=== PATIENT | female | born 1955 | race Caucasian/White ===

== ENCOUNTER → 2017-05-14 | Outpatient (CLI) | payer BC ==
--- NOTE | 2017-05-15 13:44 | MM ---
Reason for exam: screening (asymptomatic). Last mammogram was performed 1 year and 9 months ago. History: Patient is postmenopausal. Family history of breast cancer in cousin and breast cancer in grandmother. Took hormonal contraceptives for 5 years. Physical Findings: A clinical breast exam by your physician is recommended on an annual basis and results should be correlated with mammographic findings. MG Screening Mammo w CAD Bilateral CC and MLO view(s) were taken. Prior study comparison: August 16, 2015, bilateral MG screening mammo w CAD. April 19, 2013, bilateral digital screening mammo w/CAD. There are scattered fibroglandular densities. No suspicious abnormality. No significant changes when compared with prior studies. ASSESSMENT: Negative, BI-RAD 1 RECOMMENDATION: Routine screening mammogram of both breasts in 1 year.
== END | disposition home or self-care (01) ==
LOC: RADMAMWWP 14:31
PROVIDERS: ATTEND Family Medicine
DX: Z12.31 Encounter for screening mammogram for malignant neoplasm of breast (principal)

== ENCOUNTER → 2018-05-07 | Outpatient (CLI) | payer BC ==
--- NOTE | 2018-05-13 09:40 | MM ---
Reason for exam: screening (asymptomatic). Last mammogram was performed 1 year ago. History: Patient is postmenopausal. Family history of breast cancer in cousin and breast cancer in grandmother. Took hormonal contraceptives for 5 years. Physical Findings: A clinical breast exam by your physician is recommended on an annual basis and results should be correlated with mammographic findings. MG Screening Mammo w CAD Bilateral CC and MLO view(s) were taken. Prior study comparison: May 14, 2017, bilateral MG screening mammo w CAD. August 16, 2015, bilateral MG screening mammo w CAD. There are scattered fibroglandular densities. Benign appearing scattered bilateral calcifications. No suspicious abnormality. No significant changes when compared with prior studies. ASSESSMENT: Benign, BI-RAD 2 RECOMMENDATION: Routine screening mammogram of both breasts in 1 year.
== END ==
LOC: RADMAMWWP 07:12
PROVIDERS: ATTEND Family Medicine
DX: Z12.31 Encounter for screening mammogram for malignant neoplasm of breast (principal)
CPT/HCPCS: 77067

== ENCOUNTER → 2019-07-12 | Outpatient (CLI) | payer BC ==
--- NOTE | 2019-07-12 15:46 | US ---
EXAMINATION TYPE: US pelvis complete transvag DATE OF EXAM: 07/12/2019 COMPARISON: NONE CLINICAL HISTORY: N81.10 Cystocele,Z80.41 Family history of malignant neoplasm. Mother had ovarian ca ncer TECHNIQUE: . Transabdominal sonographic images of the pelvis were acquired. Transvaginal sonographi c images were medically necessary to better assess the following anatomy: Uterus and ovaries Date of LMP: 3 years ago EXAM MEASUREMENTS: Uterus: 5.9 x 4.3 x 4.7 cm Endometrial Stripe: 0.2 cm Right Ovary: 2.0 x 1.4 x 1.3 cm Left Ovary: 0.9 x 0.7 x 1.3 cm 1. Uterus: Anteverted Echogenic area measuring 1.5 x 1.5 x 1.9 cm 2. Endometrium: wnl 3. Right Ovary: wnl 4. Left Ovary: Adjacent to the left ovary, there is a cystic area visualized measuring 3.5 x 1.7 x 2 .1 cm, probable paraovarian cyst 5. Bilateral Adnexa: See above 6. Posterior cul-de-sac: wnl IMPRESSION: 1. Intramural echogenic lesion measuring 1.9 cm could represent a lipoleiomyoma or much less likely a lipoleiomyosarcoma. Pelvic MRI or short-term follow-up ultrasound could be considered. 2. Probable 3.5 cm paraovarian cyst on the left. Consensus criteria recommends annual follow-up ultra sound for surveillance in cysts of this size.
--- NOTE | 2019-07-14 14:57 | MM ---
Reason for exam: screening (asymptomatic). Last mammogram was performed 1 year and 2 months ago. History: Patient is postmenopausal. Family history of breast cancer in cousin and breast cancer in grandmother. Took hormonal contraceptives for 5 years. Physical Findings: A clinical breast exam by your physician is recommended on an annual basis and results should be correlated with mammographic findings. MG Screening Mammo w CAD Bilateral CC and MLO view(s) were taken. Prior study comparison: May 07, 2018, bilateral MG screening mammo w CAD. May 14, 2017, bilateral MG screening mammo w CAD. There are scattered fibroglandular densities. No significant changes when compared with prior studies. ASSESSMENT: Benign, BI-RAD 2 RECOMMENDATION: Routine screening mammogram of both breasts in 1 year.
== END | disposition home or self-care (01) ==
LOC: RADUSWWP 12:41
PROVIDERS: ATTEND Family Medicine
DX: Z12.31 Encounter for screening mammogram for malignant neoplasm of breast (principal); N81.10 Cystocele, unspecified; R87.820 Cervical low risk human papillomavirus (HPV) DNA test positive; Z80.41 Family history of malignant neoplasm of ovary
CPT/HCPCS: 76830; 76856; 77067

== ENCOUNTER → 2019-10-05 | Outpatient (CLI) | payer BC ==
--- NOTE | 2019-10-05 12:44 | US ---
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 follow up from prior ultras ound. family history of ovarian cancer TECHNIQUE: Transvaginal (TV) and Transabdominal (TA) . Transabdominal sonographic images of the pel vis were acquired. Transvaginal sonographic images were medically necessary to better assess the fol lowing anatomy: ovaries Date of LMP: unknown EXAM MEASUREMENTS: Uterus: 6.7 x 3.9 x 5.3 cm Endometrial Stripe: 0.4 cm Right Ovary: unable to visualize Left Ovary: 2.1 x 1.4 x 1.5 cm 1. Uterus: Anteverted hyperechoic area = 1.9 x 2.0 x 2.1cm, this previously measured 1.5 x 1.5 x 1.9 cm and hypoechoic area = 0.8 x 0.6 x 0.9cm, possible small leiomyoma. 2. Endometrium: appears wnl 3. Right Ovary: Obscured by overlying bowel gas 4. Left Ovary: cystic area adjacent to left ovary = 3.1 x 1.3 x 3.5cm. This previously measured 3.5 x 1.7 x 2.1 cm on the prior. 5. Right Adnexa: appears wnl 6. Posterior cul-de-sac: appears wnl IMPRESSION: 1. Interval growth of the hyperechoic uterine lesion in comparison to 07/12/2019. Most commonly this r elates to a hemorrhagic leiomyoma, lipoleiomyoma or much less likely a lipoleiomyosarcoma. Pelvic MRI with contrast or surgical consultation are recommended given the interval growth. Interval growth of the left paraovarian lesion is also seen and pelvic MRI or surgical consultation also recommended fo r this lesion. 2. Obscuration of the right ovary.
== END | disposition home or self-care (01) ==
LOC: RADUSWWP 10:36
PROVIDERS: ATTEND Family Medicine
DX: N85.9 Noninflammatory disorder of uterus, unspecified (principal); N83.8 Other noninflammatory disorders of ovary, fallopian tube and broad ligament; D39.0 Neoplasm of uncertain behavior of uterus; Z80.41 Family history of malignant neoplasm of ovary
CPT/HCPCS: 76830; 76856

== ENCOUNTER → 2020-09-19 | Outpatient (CLI) | payer BC ==
--- NOTE | 2020-09-20 13:07 | MM ---
Reason for exam: screening (asymptomatic). Last mammogram was performed 1 year and 2 months ago. History: Patient is postmenopausal. Family history of breast cancer in cousin and breast cancer in grandmother. Took hormonal contraceptives for 5 years. Physical Findings: A clinical breast exam by your physician is recommended on an annual basis and results should be correlated with mammographic findings. MG Screening Mammo w CAD Bilateral CC, MLO, and XCCL view(s) were taken. Prior study comparison: July 12, 2019, bilateral MG screening mammo w CAD. May 07, 2018, bilateral MG screening mammo w CAD. There are scattered fibroglandular densities. There are benign appearing round calcifications in the right breast. There is no discrete abnormality. ASSESSMENT: Benign, BI-RAD 2 RECOMMENDATION: Routine screening mammogram of both breasts in 1 year.
== END | disposition home or self-care (01) ==
LOC: RADMAMWWP 16:19
PROVIDERS: ATTEND Obstetrics & Gynecology Gynecology
DX: Z12.31 Encounter for screening mammogram for malignant neoplasm of breast (principal); Z78.0 Asymptomatic menopausal state; Z80.3 Family history of malignant neoplasm of breast
CPT/HCPCS: 77067

== ENCOUNTER 2021-06-10 10:41 | Observation (INO) | payer BC, MEDICARE ==
[2021-06-05 15:05] VITALS: BMI 29.5
[~2021-06-10 10:41] MED LIST: ACETAMINOPHEN TAB 500 MG TAB PO PRN; HEPARIN SODIUM,PORCINE/PF 5,000 UNIT/0.5 ML SYRINGE SQ PRN; LIDOCAINE 1% (10MG/ML) FOR IV START INTRADERMA PRN
[2021-06-10 11:24] LABS: Glucose,Whole Blood 81 mg/dL (75-99)
[2021-06-10] MEDS: LACTATED RINGERS 1,000 ML IV SCH (11:27)
[2021-06-10] MEDS: DEXAMETHASONE SOD PHOSPHATE 4 MG/ML 1 ML VIAL IV ONE ×2 (11:27→17:26)
[2021-06-10] MEDS: ONDANSETRON 4 MG/2 ML VIAL IVP ONE ×2 (11:27→17:26)
--- NOTE | 2021-06-10 11:34 | P.GSHP ---
History of Present Illness H&P Date: 06/10/21 Chief Complaint: Incisional hernia 66-year-old female here for elective repair incisional hernia. Patient had a hysterectomy performed December 2019 through a low midline incision. Patient found to have significant abdominal adhesions. Following the surgery she has noticed a gradual increasing bulge there. Reducible hernia identified on recent exam. Mild pain at times. Hernia is increasing in size. Patient had previous open repair of a periumbilical hernia with ventral X ST mesh. Recent colonoscopy showed diverticulosis only. Past Medical History Past Medical History: Osteoarthritis (OA) Additional Past Medical History / Comment(s): 05/31/14 Pt admitted to floor s/p incarcerated hernia repair with mesh. Pt had hx of anterior avdominal wall hernia containing small bowel loops. History of Any Multi-Drug Resistant Organisms: None Reported Past Surgical History: Cholecystectomy, Hernia Repair, Hysterectomy, Tonsillectomy Additional Past Surgical History / Comment(s): 2 separate hernia repairs without mesh. HERNIA WITH MESH, BILATERAL OOPHERECTOMY AND TUBES REMOVED Past Anesthesia/Blood Transfusion Reactions: No Reported Reaction Smoking Status: Never smoker - Past Family History Mother Family Medical History: Cancer Additional Family Medical History / Comment(s): OVARIAN CANCER Father Family Medical History: Coronary Artery Disease (CAD) Medications and Allergies Home Medications Medication Instructions Recorded Confirmed Type Acetaminophen [Tylenol Arthritis] 1,300 mg PO Q8H PRN 06/05/21 06/10/21 History Ibuprofen [Motrin] 800 mg PO Q12H PRN 06/05/21 06/10/21 History Zinc 50 mg PO DAILY 06/05/21 06/10/21 History Allergies Allergy/AdvReac Type Severity Reaction Status Date / Time nickel Allergy RED AND Verified 06/10/21 11:08 BURNING SKIN Surgical - Exam Vital Signs Temp Pulse Resp BP Pulse Ox 97.5 F L 91 18 150/72 97 06/10/21 11:16 06/10/21 11:16 06/10/21 11:16 06/10/21 11:16 06/10/21 11:16 Physical exam: General: Well-developed, well-nourished HEENT: Normocephalic, sclerae nonicteric Abdomen: Nontender, nondistended, moderate size reducible incisional hernia low midline, fascial defect proximally 4 cm Extremities: No edema Neuro: Alert and oriented Assessment and Plan (1) Incisional hernia Narrative/Plan: 66-year-old female with symptomatic reducible lower midline incisional hernia. Options discussed with the patient in the office in detail. We'll proceed with open repair incisional hernia with mesh. Risks of bleeding, infection, recurrence, bladder and bowel injury, numbness, nerve injury, cardiac complications were discussed with the patient. The patient understands and wishes to proceed. Current Visit: No Status: Acute Code(s): K43.2 - INCISIONAL HERNIA WITHOUT OBSTRUCTION OR GANGRENE SNOMED Code(s): 305947268
[2021-06-10] MEDS ORDERED: fentaNYL (PF) 50 MCG/ML 2 ML AMP IVP ONE ×2 (11:55→16:52)
[2021-06-10] MEDS ORDERED: MIDAZOLAM 2 MG/2 ML VIAL IVP ONE (11:55)
[2021-06-10] MEDS ORDERED: MIDAZOLAM 2 MG/2 ML VIAL ONE (13:10)
[2021-06-10] MEDS ORDERED: ROPIVACAINE 5 MG/ML 30 ML VIAL ONE (13:10)
[2021-06-10] MEDS ORDERED: GLYCOPYRROLATE 0.2 MG/ML 2 ML VIAL ONE (13:10)
[2021-06-10] MEDS ORDERED: SUCCINYLCHOLINE CHLORIDE 100 MG/5 ML SYR IV ONE (13:10)
[2021-06-10] MEDS ORDERED: fentaNYL (PF) 50 MCG/ML 2 ML AMP ONE (13:10)
[2021-06-10] MEDS ORDERED: NEOSTIGMINE 1 MG/ML 10 ML VIAL ONE (13:10)
[2021-06-10] MEDS ORDERED: PHENYLEPHRINE-0.9% NACL SYG 1,000 MCG/10 ML SYRINGE ONE (13:10)
[2021-06-10] MEDS ORDERED: SODIUM CHLORIDE 0.9% (PF) 10 ML VIAL ONE (13:10)
[2021-06-10] MEDS ORDERED: LIDOCAINE 1% INJ 10MG/ML (20 ML MDV) ONE (13:10)
[2021-06-10] MEDS ORDERED: ROCURONIUM 10 MG/ML (5 ML VIAL) IV ONE (13:10)
[2021-06-10] MEDS ORDERED: PROPOFOL 10 MG/ML 20 ML VIAL IV ONE (13:10)
--- NOTE | 2021-06-10 13:12 | P.ANPRN ---
Procedure Note - Anesthesia - Nerve Block Performed Bilateral Erector Spinae Single Time Out Performed: Yes ([id number]) Date of Procedure: 06/10/21 Procedure Start Time: 12:55 Procedure Stop Time: 12:31 Location of Patient: PreOp Indication: Acute Post-Operative Pain, Requested by Surgeon Specifically requested for management of pain by DrAni: John Drummond Sedation Type: Sedate with meaningful contact maintained Preparation: Sterile Prep Position: Prone Catheter: None Needle Types: Pajunk Needle Gauge: 21 Ultrasound used to visualize needle placement: Yes Ultrasound used to observe medication spread: Yes Injectate: 0.5% Ropivacaine (see comment for volume) (15cc + 15cc nacl pf) Blood Aspirated: No Pain Paresthesia on Injection Noted: No Resistance on Injection: Normal Image Stored and Saved: Yes Events: Uneventful and Well Tolerated
[2021-06-10] MEDS ORDERED: LACTATED RINGERS 1,000 ML IV ONE ×2 (14:57→15:30)
[2021-06-10] MEDS ORDERED: NALOXONE 0.4 MG/ML 1 ML VIAL IV PRN (15:30)
[2021-06-10] MEDS ORDERED: ONDANSETRON 4 MG/2 ML VIAL IVP PRN (15:32)
[2021-06-10] MEDS ORDERED: ACETAMINOPHEN IV (For NPO) 1,000 MG in EMPTY BAG 1 BAG IVPB PRN (15:32)
[2021-06-10] MEDS ORDERED: HYDROmorphone 0.5 MG/0.5 ML SYRINGE IVP PRN (15:32)
[2021-06-10] MEDS: HYDROmorphone 0.5 MG/0.5 ML SYRINGE IVP PRN ×4 (15:36→16:26)
--- NOTE | 2021-06-10 15:41 | P.OP ---
Date of Procedure: 06/10/21 Procedure(s) Performed: PREOPERATIVE DIAGNOSIS: Incisional hernia POSTOPERATIVE DIAGNOSIS: Same PROCEDURE: Open repair large incisional hernia with 2 defects with mesh SURGEON: Dr. Drummond ANESTHESIA: General OPERATIVE PROCEDURE DETAILS: Patient placed on the operating table in the supine position. Abdomen was prepped and draped in usual sterile fashion. The previous lower midline incision was re-incised. Dissection through the subcutaneous tissues took place using electrocautery. A moderate to large hernia was identified. The hernia sac was carefully dissected down to the level of the fascia where it was excised. The patient had an additional defect present superior to the lower fascial opening. The main hernia defect in the fascia measured 6 x 2.5 cm. There was about a 2 cm area of fairly strong fascia superior to that defect and then we encountered a 1.5 cm fascial opening. The preperitoneal space was dissected at both locations to accommodate a sub-lay mesh. We did enter the peritoneal cavity at the superior fascial defect site. I was able to palpate the previous mesh placed at the umbilicus and this was approximately 2-3 cm above the edge of the superior fascial defect. At that time I excised the redundant hernia sac. The defect in the peritoneum was closed using a running locking 2-0 Vicryl stitch. We had adequate space now circumferentially for a mesh to be present covering both fascial defects. A 12 x 8 cm oval-shaped Ventrio mesh was placed in the preperitoneal space. This was then sutured to the fascia using trans-fascial 0 Ethibond sutures circumferentially. The superior defect was closed horizontally using overlapping interrupted 0 Ethibond mattress sutures. The larger defect was closed vertically in a similar fashion. The folding edge of both closures was tacked down using interrupted 0 Ethibond sutures as well. The operative site was irrigated with saline. No bleeding was seen. A drain was placed anterior to the fascial closure exiting through the right lower quadrant. This was sutured to the skin using a 3-0 silk stitch. The subcutaneous tissues were closed using 2-0 and 3-0 Vicryl sutures. The skin was closed using a running 4- 0 Monocryl subcuticular suture. Sterile dressings were applied. HERNIA CHARACTERISTICS: Length: 1.5, 6 cm Width: 1.5, 2.5 cm Type: Incisional TYPE OF MESH USED: Ventrio 12 x 8 cm LOCATION OF MESH: Sub-lay FIXATION: Trans-fascial 0 Ethibond sutures DISPOSITION: Stable to recovery room
[2021-06-10] MEDS: HEPARIN SODIUM,PORCINE/PF 5,000 UNIT/0.5 ML SYRINGE SQ SCH ×2 (17:46→23:49)
[2021-06-10] MEDS: KETOROLAC 30 MG/ML 1 ML VIAL IVP SCH ×2 (17:46→23:48)
[2021-06-10] MEDS ORDERED: KETOROLAC 15 MG/ML 1 ML VIAL IVP SCH (18:00)
[2021-06-10] MEDS: DOCUSATE 100 MG CAP PO SCH (20:21)
[2021-06-11] MEDS: KETOROLAC 30 MG/ML 1 ML VIAL IVP SCH ×4 (05:48→23:51)
[2021-06-11] MEDS: LACTATED RINGERS 1,000 ML IV SCH (05:50)
[2021-06-11] MEDS: HEPARIN SODIUM,PORCINE/PF 5,000 UNIT/0.5 ML SYRINGE SQ SCH ×3 (07:57→23:52)
[2021-06-11] MEDS: PANTOPRAZOLE 40 MG/10 ML VIAL IV SCH (07:58)
[2021-06-11] MEDS: DOCUSATE 100 MG CAP PO SCH ×2 (07:58→20:22)
--- NOTE | 2021-06-11 14:52 | P.PN ---
<MinooSera - Last Filed: 06/11/21 14:39> Subjective Progress Note Date: 06/11/21 CHIEF COMPLAINT: Incisional hernia HISTORY OF PRESENT ILLNESS: 66-year-old female who presented for elective repair of incisional hernia. She is postop day #1 for open repair of large incisional hernia with 2 defects with mesh. Reports approximately 50 mL of drainage was emptied from her JYOTI drain this morning. She states she does have quite a bit of surgical pain. His abdominal binder in place. She denies any plan is. No bowel movement. Denies any nausea or vomiting. She did have a regular diet this morning and tolerated it well. PHYSICAL EXAM: VITAL SIGNS: Reviewed. GENERAL: Well-developed in no acute distress. HEENT: No sclera icterus. Extraocular movements grossly intact. Moist buccal mucosa. Head is atraumatic, normocephalic. ABDOMEN: Soft. Nondistended. Abdominal incision sites clean dry and intact. JYOTI drain intact with 50 mL's of serosanguineous drainage. Abdominal binder in place. NEUROLOGIC: Alert and oriented. Cranial nerves II through XII grossly intact. ASSESSMENT: 1. Incisional hernia, postop day #1 open repair of large incisional hernia with 2 defects with mesh with JYOTI drain PLAN: 1. Continue diet as tolerated 2. Encourage ambulation 3. Continue abdominal binder 4. Continue pain management 5. Incentive spirometer to bedside 6. Anticipate discharge in the next 24-48 hours The impression and plan of care has been dictated as directed. Dr. Drummond I performed a history and examination of this patient, discussed the same with the dictator. I agree with the dictator's note ,documented as a scribe. Any additional findings or plans will be noted. Objective - Vital Signs Vital signs: Vital Signs Temp 97.9 F 06/11/21 04:40 Pulse 79 06/11/21 04:40 Resp 18 06/11/21 04:40 BP 126/72 06/11/21 04:40 Pulse Ox 97 06/11/21 04:40 Intake & Output 06/10/21 06/11/21 06/11/21 18:59 06:59 18:59 Intake Total 2200 540 Output Total 310 40 Balance 1890 540 -40 Weight 89.9 kg Intake: IV 2100 Intake, IV Titration 100 Amount Lactated Ringers 1,000 ml 100 @ 100 mls/hr IV .Q10H ONE Rx#:[id number] Oral 540 Output: Drainage 40 Right Lower Abdomen 40 Urine 300 Estimated Blood Loss 10 Other: Voiding Method Toilet <John Drummond - Last Filed: 06/11/21 17:14> Subjective As above. Patient doing fairly well. Pain is better controlled this afternoon. She is starting to ambulate more. JYOTI drain serosanguineous. Continue increasing activity. Anticipate discharge tomorrow. Objective - Vital Signs Vital signs: Vital Signs Temp 97.7 F 06/11/21 12:30 Pulse 78 06/11/21 12:30 Resp 16 06/11/21 12:30 BP 104/60 06/11/21 12:30 Pulse Ox 94 L 06/11/21 12:30 Intake & Output 06/10/21 06/11/21 06/11/21 18:59 06:59 18:59 Intake Total 2200 540 Output Total 310 80 Balance 1890 540 -80 Weight 89.9 kg Intake: IV 2100 Intake, IV Titration 100 Amount Lactated Ringers 1,000 ml 100 @ 100 mls/hr IV .Q10H ONE Rx#:[id number] Oral 540 Output: Drainage 80 Right Lower Abdomen 80 Urine 300 Estimated Blood Loss 10 Other: Voiding Method Toilet # Bowel Movements 1 Assessment and Plan (1) Incisional hernia Current Visit: Yes Status: Acute Code(s): K43.2 - INCISIONAL HERNIA WITHOUT OBSTRUCTION OR GANGRENE SNOMED Code(s): 415269395
[2021-06-11] MEDS: HYDROcodone/APAP 5-325MG 1 EACH TAB PO PRN ×2 (17:55→23:48)
[2021-06-12] MEDS: KETOROLAC 30 MG/ML 1 ML VIAL IVP SCH (05:29)
[2021-06-12] MEDS: HEPARIN SODIUM,PORCINE/PF 5,000 UNIT/0.5 ML SYRINGE SQ SCH (07:56)
[2021-06-12] MEDS: PANTOPRAZOLE 40 MG/10 ML VIAL IV SCH (07:57)
[2021-06-12] MEDS: DOCUSATE 100 MG CAP PO SCH (07:57)
--- NOTE | 2021-06-12 10:26 | P.DS ---
<MinooSera - Last Filed: 06/12/21 11:28> Providers Expected date of discharge: 06/12/21 Hospital Course: Discharge diagnosis: Incisional hernia status post open repair of large incisional hernia 66-year-old female who presented for elective repair of incisional hernia. She is postop day #2 for open repair of large incisional hernia with 2 defects with mesh. She has a JYOTI drain in place in the right lower abdomen and had approximately 60 mL's of serosanguineous output. She reports her pain has been well-controlled. She denies any nausea or vomiting. She is tolerating a regular diet. She had a bowel movement yesterday. She's been afebrile. Plan is for discharge today with follow up with Dr. Drummond in one week. The impression and plan of care has been dictated as directed. Dr. Drummond I performed a history and examination of this patient, discussed the same with the dictator. I agree with the dictator's note ,documented as a scribe. Any additional findings or plans will be noted. Procedures: Open repair of large incisional hernia with 2 defects with mesh Plan - Discharge Summary Discharge Rx Participant: No New Discharge Prescriptions: New HYDROcodone/APAP 5-325MG [[place] 5-325] 1 each PO Q4HR PRN #12 tab PRN Reason: Mild Pain Docusate [Colace] 100 mg PO BID cap Continue Ibuprofen [Motrin] 800 mg PO Q12H PRN PRN Reason: Pain Zinc 50 mg PO DAILY Acetaminophen [Tylenol Arthritis] 1,300 mg PO Q8H PRN PRN Reason: Pain Discharge Medication List Acetaminophen [Tylenol Arthritis] 1,300 mg PO Q8H PRN 06/05/21 [History] Ibuprofen [Motrin] 800 mg PO Q12H PRN 06/05/21 [History] Zinc 50 mg PO DAILY 06/05/21 [History] Docusate [Colace] 100 mg PO BID cap 06/12/21 [Rx] HYDROcodone/APAP 5-325MG [[place] 5-325] 1 each PO Q4HR PRN #12 tab 06/12/21 [Rx] Follow up Appointment(s)/Referral(s): John Drummond MD [Medical Doctor] - 06/20/21 8:50 am Patient Instructions/Handouts: Caleb-Teresa Drain Care (DC), Incisional Hernia (DC) Activity/Diet/Wound Care/Special Instructions: No heavy, lifting, pushing, or pulling of objects greater than 10-15 pounds. No vigorous activity. Shower daily; no tub baths, pools, or hot tubs. No driving until seen by surgeon in follow-up visit. Notify surgeon with inability to pass flatus or have bowel movements, fever greater than 101, changes in incision such as redness, swelling, drainage, or increased pain. Patient verbalized understanding of discharge instructions. Discharge Disposition: HOME SELF-CARE <John Drummond - Last Filed: 06/12/21 11:58> Providers Date of admission: 06/11/21 10:38 Attending physician: John Drummond Primary care physician: Cassandra Drummond - Discharge Diagnosis(es) (1) Incisional hernia Current Visit: Yes Status: Acute Hospital Course: I have personally seen and examined the patient, reviewed the BELLHOP /PAs history, exam and MDM and agree with the assessment and plan as written. Based on total visit time, I have performed more than 50% of the visit. As above. Patient doing well. May discharge. Follow-up one week.
[2021-06-12 11:56] VITALS: BP 134/78; PULSE 85; RESP 14; TEMP 98.1
== END 2021-06-12 12:35 | disposition home or self-care (01) ==
LOC: OR 10:41 → 5NMEDONC 16:16 → OR 06-11 11:03
PROVIDERS: ADMIT Surgery; ATTEND Surgery
DX: K43.2 Incisional hernia without obstruction or gangrene (principal); M19.90 Unspecified osteoarthritis, unspecified site; K57.90 Diverticulosis of intestine, part unspecified, without perforation or abscess without bleeding; Z20.822 Contact with and (suspected) exposure to COVID-19; Z91.048 Other nonmedicinal substance allergy status; Z71.9 Counseling, unspecified; Z90.710 Acquired absence of both cervix and uterus; Z90.49 Acquired absence of other specified parts of digestive tract; Z82.49 Family history of ischemic heart disease and other diseases of the circulatory system; Z80.41 Family history of malignant neoplasm of ovary
CPT/HCPCS: 49560; 49568; 64999; 88302; 87635; G0378 ×2; C1781; J2250; J1100; J2710; J0690; J2405; J2001; J3010; J1885 ×4; J2795; J2370; J0330; J2704; C9113 ×2; J1170 ×2; J1644 ×3

== ENCOUNTER → 2021-09-11 | Outpatient (CLI) | payer MEDICARE ==
[2021-09-11 22:59] LABS: INR 0.95 (0.90-1.11); Prothrombin Time 10.8 sec (9.9-11.9)
[2021-09-12 01:00] LABS: Basophils # (A) 0.02 X 10*3/uL (0.00-0.10); Basophils % (A) 0.4 %; Eosinophils # (A) 0.03 X 10*3/uL (0.04-0.35); Eosinophils % (A) 0.7 %; HCT 40.1 % (37.2-46.3); HGB 12.5 g/dL (12.0-15.0); Immature Grans, Automated 0.2 %; Lymphocytes # (A) 1.98 X 10*3/uL (0.90-5.00); Lymphocytes % (A) 44.5 %; MCHC 31.2 g/dL (32.0-37.0); MCV 96.2 fL (80.0-97.0); Mean Platelet Volume 11.4 fL (9.5-12.2); Monocytes # (A) 0.48 X 10*3/uL (0.20-1.00); Monocytes % (A) 10.8 %; NRBC Per 100 WBC 0 /100 WBCS (0.0-0.0); Neutrophils # (A) 1.93 X 10*3/uL (1.80-7.70); Neutrophils % (A) 43.4 %; Platelet Count 245 X 10*3/uL (140-440); RBC 4.17 X 10*6/uL (4.10-5.20); RDW 13.8 % (11.5-14.5); WBC 4.45 X 10*3/uL (4.50-10.00)
[2021-09-12 01:17] LABS: African American GFR (CKD) 103.9 (60.0-200.0); Anion Gap 9.1 mmol/L (10.00-18.00); BUN/Creat Ratio 29.66 Ratio (12.00-20.00); Calcium 9.4 mg/dL (8.7-10.3); Carbon Dioxide 24.8 mmol/L (20.0-27.5); Non-African American GFR(CKD) 89.7 (60.0-200.0); Potassium 4.1 mmol/L (3.5-5.5)
== END | disposition home or self-care (01) ==
LOC: LABPAT 15:16
PROVIDERS: ATTEND Orthopaedic Surgery
DX: Z01.818 Encounter for other preprocedural examination (principal); M17.12 Unilateral primary osteoarthritis, left knee; R94.31 Abnormal electrocardiogram [ECG] [EKG]
CPT/HCPCS: 80048; 85025; 85610; 87070; 93005

== ENCOUNTER 2021-10-01 10:59 | Observation (INO) | payer MEDICARE ==
[2021-09-30 09:16] VITALS: BMI 28.7
--- NOTE | 2021-09-30 11:05 | HP ---
HISTORY AND PHYSICAL CHIEF COMPLAINT: Left knee pain. HISTORY OF PRESENT ILLNESS: The patient is a 66-year-old [employer] employee who presents with progressive left knee pain for the past several years, worsening recently. She notes pain with weight- bearing activities. She also notes stiffness and swelling. She has tried previous medications along with injections, with only partial temporary relief. She notes it feels unstable at times. PAST MEDICAL HISTORY: Significant for arthritis. PAST SURGICAL HISTORY: Significant for hysterectomy and hernia repair. CURRENT MEDICATIONS: Aleve and ibuprofen. ALLERGIES: SHE DENIES DRUG ALLERGIES. FAMILY HISTORY: Significant for cancer. SOCIAL HISTORY: Negative for current tobacco or alcohol use. REVIEW OF SYSTEMS: Sixteen-point review of systems otherwise reviewed and is noncontributory. PHYSICAL EXAMINATION: On examination, the patient is approximately 5 feet 10 inches, 200 pounds of endomorphic habitus. HEENT exam is nonfocal. Neck is supple. She has painless passive motion of her left hip. Straight-leg raise is negative. Active motion of left knee: Minus 12 to 103 degrees of flexion. She has a moderate effusion. She is tender about the medial joint line. Collaterals are stable. Rod is negative. Melania's is equivocal. She has genu varum alignment. Her distal neurovascular exam appears intact in the left lower extremity. Weight-bearing notch, lateral and Merchant views of the left knee obtained in the office show severe left knee medial and patellofemoral compartment osteoarthrosis with subchondral sclerosis and [id number] changes. Significant varus deformity is noted. IMPRESSION: Left knee severe medial and patellofemoral compartment osteoarthrosis. RECOMMENDATIONS: I talked to the patient at length regarding her condition along with treatment options. At this point she is quite limited because of pain related to her osteoarthrosis despite previous conservative measures. After thorough discussion, she opts to proceed with surgery. We will plan to proceed with left total knee arthroplasty. We will institute DVT prophylaxis postoperatively. MMODL / IJN: [id number] /
[~2021-10-01 10:59] MED LIST changes: +DEXAMETHASONE SOD PHOSPHATE 4 MG/ML 1 ML VIAL IV ONE; -HEPARIN SODIUM,PORCINE/PF 5,000 UNIT/0.5 ML SYRINGE SQ PRN; +MELOXICAM 7.5 MG TAB PO PRN; +MIDAZOLAM 2 MG/2 ML VIAL IV PRN; +ONDANSETRON 4 MG/2 ML VIAL IVP ONE; +TRANEXAMIC ACID IN NACL,ISO-OS 1,000 MG in SALINE 1 100ML.BAG IVPB PRN
[2021-10-01] MEDS: LACTATED RINGERS 1,000 ML IV SCH (11:35)
[2021-10-01] MEDS ORDERED: TRANEXAMIC ACID IN NACL,ISO-OS 1,000 MG/100 ML BAG ONE (13:17)
[2021-10-01] MEDS ORDERED: DEXAMETHASONE SOD PHOSPHATE 4 MG/ML 1 ML VIAL ONE (13:17)
[2021-10-01] MEDS ORDERED: MIDAZOLAM 2 MG/2 ML VIAL ONE (13:17)
[2021-10-01] MEDS ORDERED: PROPOFOL 10 MG/ML 20 ML VIAL IV ONE (13:17)
[2021-10-01] MEDS ORDERED: ROPIVACAINE 5 MG/ML 30 ML VIAL ONE (13:17)
[2021-10-01] MEDS ORDERED: ceFAZolin 1,000 MG in SODIUM CHLORIDE 0.9% 1,000 ML IRRIGATION ONE (13:44)
[2021-10-01] MEDS ORDERED: traMADol 50 MG TAB PO PRN (15:02)
[2021-10-01] MEDS ORDERED: NALOXONE 0.4 MG/ML 1 ML VIAL IV PRN (15:02)
[2021-10-01] MEDS ORDERED: HYDROmorphone 0.5 MG/0.5 ML SYRINGE IVP PRN (15:02)
[2021-10-01] MEDS ORDERED: MAGNESIUM HYDROXIDE 2,400 MG/10 ML CUP PO PRN (15:02)
[2021-10-01] MEDS ORDERED: ONDANSETRON 4 MG/2 ML VIAL IVP PRN (15:02)
[2021-10-01] MEDS ORDERED: LACTATED RINGERS 1,000 ML IV ONE (15:06)
[2021-10-01] MEDS ORDERED: ROPIVACAINE 0.2%-NS ON-Q PUMP 1,090 MG, EMPTY PAIN BALL 1 EACH MISCELLANE PRN (15:46)
--- NOTE | 2021-10-01 15:46 | P.OP ---
Date of Procedure: 10/01/21 Preoperative Diagnosis: Left knee severe tricompartmental osteoarthrosis Postoperative Diagnosis: Same Procedure(s) Performed: Left total knee arthroplastycementedposterior stabilized Implants: [employer] journey 2 size 7 cemented femoral component, size 6 cemented tibial component, 11 mm constrained articular surface, 32 mm cemented patellar component. Anesthesia: regional, spinal Surgeon: David Chan Procurement Director #1: Santy Knight Estimated Blood Loss (ml): 50 Pathology: none sent Condition: stable Disposition: PACU Indications for Procedure: The patient's a 66-year-old female presents with progressive left knee pain secondary to severe osteoarthrosis despite conservative measures. A discussion of the risks and benefits of operative intervention versus continued conservative measures was made with patient. She opted to proceed with surgery. Operative risks to include infection, neurovascular injury, development of blood clots, fracture, instability, component failure and possible need for subsequent procedures was discussed. Informed consent was obtained. Operative Findings: As below Description of Procedure: The patient was brought to the operating room, and after induction of spinal anesthesia the left lower extremity was prepped and draped in a normal fashion. The tourniquet was inflated to 270 mm marker. A longitudinal incision extending 3 finger breaths above the superior pole of patella extending to the medial aspect the tibial tubercle was then made. The skin and subcutaneous tissues were divided sharply. Electrocautery was used for hemostasis. A medial parapatellar arthrotomy was performed. The medial soft tissues to include the superficial and deep portions of the medial collateral ligament were elevated subperiosteally. The patella was everted. A portion of the retropatellar fat pad was excised sharply. The anterior cruciate ligament was sacrificed. Blunt retractors were placed. A starting hole was made in the distal femur 1 cm anterior to the posterior cruciate ligament origin. An intramedullary femoral guide was then inserted planning on 5 valgus distal cut with 9 mm distal resection. The cutting block was pinned in place. The distal cut was then made. The posterior referencing sizing guide was utilized. I felt size 7 was most appropriate. 3 of external rotation was built into the system and verified off the trans-epicondylar axis and the posterior condyles. The cutting block was pinned in place. The anterior, posterior, and chamfer cuts then made. Bone fragments were removed. The intercondylar guide was placed and the notch cut was made with a reamer. The trial component was then placed. There is good anterior to posterior and medial to lateral fit. The distal peg holes were drilled. The trial component was removed. Attention was then paid towards preparing the proximal femur. An extra medullary guide was utilized in line with the tibial shaft and second metatarsal distally. I planned on 1 mm resection from the medial compartment. The cutting block was pinned in place. The proximal tibial cut was then made. The bone was removed in one fragment. The remnants of the medial and lateral menisci were excised at the capsular junction with electrocautery. The remaining medial tibial osteophytes were removed with a rongeur. The tibia sized most appropriately at size 6. The trial femoral and tibial components were placed along with a 11 mm articular surface. I was able to obtain full flexion and extension with internal and external rotation. After several flexion and extension cycles, the tibial rotation was marked with electrocautery line with the medial one third of the tibial tubercle. Attention was then paid towards preparing the patella. A pa tella reamer was utilized taking stem to 14 mm of bone stock. A good flush cut was made. The patella sized most appropriately 32 mm. The peg holes were drilled. The trial components placed. I had good patellofemoral tracking with no hands technique. The trial components were then removed. The tibia was prepared in the appropriate rotation with appropriate drill and keel punch. The posterior osteophytes were removed with a curved osteotome. The flexion and extension gaps were checked and felt to be symmetric at 11 mm. A trial components were then removed. The bony surfaces were prepared with pulsatile lavage and dried. The tibial component was then cemented place was fully seated. Excess cement was removed. The femoral component cemented place and was fully seated. Excess cement was removed. The trial 11 mm articular surface was placed and the knee was put in full extension. The patella component was cemented place. After the cement had sufficiently hardened, the knee was again taken through a range of motion. Again I was able to obtain full flexion and extension with varus and valgus stress. The trial 11 mm articular surface was removed and the final one inserted. This was fully seated. Care was taken to avoid any soft tissue interposition. Pulsatile lavage was again utilized. The medial parapatellar arthrotomy was closed with #2 Ethibond suture. The tourniquet was deflated with approximately 75 minutes total tourniquet time. Final hemostasis was obtained with the cautery. There was minimal bleeding therefore a deep drain was not placed. The subcutaneous tissues were reapproximated with interrupted 2-0 Vicryl sutures. The skin was reapproximated with 3-0 subcuticular strata fix suture. Skin tape and adhesive was applied. A sterile dressing was applied. The patient was awoken from sedation and transferred to recovery room in good condition. Blood loss was estimated at 50 mL. No complications were incurred. Sponge and needle counts were correct at the end of the case. Santy TRENT assisted during the major components of this case to include exposure, bone resection, implantation, and closure.
[2021-10-01] MEDS: HYDROmorphone 0.5 MG/0.5 ML SYRINGE IVP PRN ×3 (15:49→20:06)
--- NOTE | 2021-10-01 15:59 | XR ---
EXAMINATION TYPE: XR knee limited LT DATE OF EXAM: 10/01/2021 COMPARISON: NONE TECHNIQUE: Two views submitted HISTORY: Post op FINDINGS: There is a prosthetic knee in near anatomic alignment. There is soft tissue edema and emphysema. IMPRESSION: 1. Postoperative change. Appears in near-anatomic alignment
[2021-10-01] MEDS ORDERED: FAMOTIDINE 20 MG/2 ML VIAL IVP ONE (17:49)
[2021-10-01] MEDS: HYDROcodone/APAP 7.5-325MG 1 EACH TAB PO PRN (20:04)
[2021-10-01] MEDS: SENNOSIDES-DOCUSATE SODIUM 1 EACH TAB PO SCH (20:08)
[2021-10-02] MEDS: HYDROmorphone 1 MG/ML 1 ML SYRINGE IVP PRN ×5 (00:40→21:36)
[2021-10-02] MEDS: HYDROcodone/APAP 7.5-325MG 1 EACH TAB PO PRN ×3 (04:28→19:33)
[2021-10-02] MEDS: RIVAROXABAN 10 MG TAB PO SCH (07:24)
--- NOTE | 2021-10-02 07:37 | P.PN ---
Progress Note - Text Progress Note Date: 10/02/21 A 66-year-old lady postop day #1 status post total knee replacement with additive canal catheter. The patient has moderate pain anteriorly. She is getting Dilaudid IV and oral [place] to help control her pain. There is no erythema on the skin around the entry site of the abductor cannot catheter. There is no tenderness around the entry site of the catheter cannot catheter.
[2021-10-02 09:00] LABS: Basophils # (A) 0.01 X 10*3/uL (0.00-0.10); Basophils % (A) 0.1 %; Eosinophils # (A) 0.01 X 10*3/uL (0.04-0.35); Eosinophils % (A) 0.1 %; HCT 39.4 % (37.2-46.3); HGB 12.2 g/dL (12.0-15.0); Immature Grans, Automated 0.3 %; Lymphocytes # (A) 1.54 X 10*3/uL (0.90-5.00); Lymphocytes % (A) 16.7 %; MCH 29.8 pg (27.0-32.0); MCV 96.1 fL (80.0-97.0); Mean Platelet Volume 10.2 fL (9.5-12.2); Monocytes # (A) 0.68 X 10*3/uL (0.20-1.00); Monocytes % (A) 7.4 %; NRBC Per 100 WBC 0 /100 WBCS (0.0-0.0); Neutrophils # (A) 6.96 X 10*3/uL (1.80-7.70); Neutrophils % (A) 75.4 %; Platelet Count 212 X 10*3/uL (140-440); WBC 9.23 X 10*3/uL (4.50-10.00)
--- NOTE | 2021-10-02 11:02 | P.PN ---
Subjective Progress Note Date: 10/02/21 Principal diagnosis: Status post left total knee arthroplasty Patient was evaluated today at bedside, she is resting comfortably in her hospital chair. She did ambulate with physical therapy, she was unable to do the stairs today. She states most of the pain in the leg is with ambulating. She currently denies any headaches, lightheadedness, chest pain or shortness of breath. She denies any difficulty with urination at this time. Objective - Vital Signs Vital signs: Vital Signs Temp 98.8 F 10/02/21 07:52 Pulse 80 10/02/21 07:52 Resp 17 10/02/21 07:52 BP 120/68 10/02/21 07:52 Pulse Ox 95 10/02/21 07:52 Intake & Output 10/01/21 10/02/21 10/02/21 18:59 06:59 18:59 Intake Total 2000 Output Total 50 Balance 195 Weight 89.7 kg 89.7 kg Intake: IV 2000 Output: Estimated Blood Loss 50 Other: Voiding Method Toilet - Exam Left lower extremity: Incision is clean, dry, and intact. The exofin fusion tape is in good condition. There is minimal soft tissue swelling and ecchymosis surrounding the medial and lateral aspects of the incision. Calf is soft, no tenderness with palpation. Plantar flexion, dorsiflexion, EHL, FHL are intact. Sensory exam to light touch throughout the extremity is intact, dorsal pedis pulses 2+. - Labs CBC & Chem 7: 10/02/21 03:21 Labs: Abnormal Lab Results - Last 24 Hours (Table) 10/02/21 Range/Units 03:21 MCHC 31.0 L (32.0-37.0) g/dL Eosinophils # 0.01 L (0.04-0.35) X 10*3/uL Assessment and Plan Assessment: Postoperative day #1 status post left total knee arthroplasty Plan: Pain control, continue Moody as needed, IV medication for breakthrough GI and DVT prophylaxis, continue Xarelto during inpatient stay, likely change to Eliquis 2.5mg bid at discharge Wound care, keep incision covered and dry while showering. Icing and elevating techniques discussed Encourage incentive spirometer Recommend weight-bear as tolerated with walker Medical recommendations Discharge planning: Due to pain control and inability to do stairs, we'll keep additional night. Hopeful discharge home on 10/03/2021 Time with Patient: Less than 30
--- NOTE | 2021-10-02 14:53 | P.CONS ---
History of Present Illness - Reason for Consult Consult date: 10/02/21 - History of Present Illness This is a pleasant 56-year-old female presented to the hospital for an elective total left knee arthroplasty with cement stabilization secondary to osteoarthritis. Today she is postop day #1. Past medical history includes osteoarthritis, history of incarcerated hernia repair with mesh in 2015, surgical history includes cholecystectomy, hernia repair, elective total hysterectomy, oophrectomy, fallopian tubal removal, tonsillectomy. She is a never smoker. Home medications include zinc daily. Labs today are showing a hemoglobin stable at 12.2, white count 9.23. She is hemodynamically stable, afebrile, blood pressure 120/68, 95% room air. Currently receiving epidural with Ultram, [place], Dilaudid for breakthrough pain. She'll be evaluated PT today. Patient has not passed gas or had bowel movement yet, she is ambulating. She is also on a bowel regimen. Using incentive spirometer. REVIEW OF SYSTEMS: CONSTITUTIONAL: No fever, no malaise, no fatigue. HEENT: No recent visual problems or hearing problems. Denied any sore throat. CARDIOVASCULAR: No chest pain, orthopnea, PND, no palpitations, no syncope. PULMONARY: No shortness of breath, no cough, no hemoptysis. GASTROINTESTINAL: No diarrhea, no nausea, no vomiting, no abdominal pain. NEUROLOGICAL: No headaches, no weakness, no numbness. HEMATOLOGICAL: Denies any bleeding or petechiae. GENITOURINARY: Denies any burning micturition, frequency, or urgency. MUSCULOSKELETAL/RHEUMATOLOGICAL: Denies any joint pain, swelling, or any muscle pain. ENDOCRINE: Denies any polyuria or polydipsia. The rest of the 14-point review of systems is negative. PHYSICAL EXAMINATION: GENERAL: The patient is alert and oriented x3, not in any acute distress. Well developed, well nourished. HEENT: Pupils are round and equally reacting to light. EOMI. No scleral icterus. No conjunctival pallor. Normocephalic, atraumatic. No pharyngeal erythema. No thyromegaly. CARDIOVASCULAR: S1 and S2 present. No murmurs, rubs, or gallops. PULMONARY: Chest is clear to auscultation, no wheezing or crackles. ABDOMEN: Soft, nontender, nondistended, normoactive bowel sounds. No palpable organomegaly. MUSCULOSKELETAL: No joint swelling or deformity. Post surgical left knee EXTREMITIES: No cyanosis, clubbing, or pedal edema. NEUROLOGICAL: Gross neurological examination did not reveal any focal deficits. SKIN: No rashes. Assessment and plan Assessment Postop day #1 total left knee arthroplasty secondary to osteoarthritis History of osteoarthritis History abdominal wall hernia, incarcerated with surgical repair x 3. History of total hysterectomy, oophrectomy, fallopian tube removal. Family history of ovarian, uterine cancer Never smoker GI prophylaxis pepcid DVT prophylaxis as per primary Full Code Plan Pepcid for GI prophylaxis added Pain management per primary PT/OT Plan for DC tomorrow by primary team Thank you kindly for this consultation The impression and plan of care has been dictated by Sarah Navarrete Nurse Practitioner as directed. Dr. Ever MD I have performed a history and physical examination and medical decision making of this patient, discussed the same with the dictator, and agree with the dictators assessment and plan as written, documented as a scribe. Based on total visit time, I have performed more than 50% of this visit. Past Medical History Past Medical History: Osteoarthritis (OA) Additional Past Medical History / Comment(s): 05/31/14 Pt admitted to floor s/p incarcerated hernia repair with mesh. Pt had hx of anterior avdominal wall hernia containing small bowel loops. History of Any Multi-Drug Resistant Organisms: None Reported Past Surgical History: Cholecystectomy, Hernia Repair, Hysterectomy, Tonsillectomy Additional Past Surgical History / Comment(s): 3 separate hernia repairs without mesh, HERNIA WITH MESH, BILATERAL OOPHERECTOMY AND TUBES REMOVED Past Anesthesia/Blood Transfusion Reactions: No Reported Reaction Past Psychological History: No Psychological Hx Reported Smoking Status: Never smoker Past Alcohol Use History: None Reported Past Drug Use History: None Reported - Past Family History Mother Family Medical History: Cancer Additional Family Medical History / Comment(s): OVARIAN CANCER. Father Family Medical History: Coronary Artery Disease (CAD) Medications and Allergies Home Medications Medication Instructions Recorded Confirmed Type Acetaminophen [Tylenol Arthritis] 1,300 mg PO Q8H PRN 06/05/21 10/01/21 History Ibuprofen [Motrin] 800 mg PO Q12H PRN 06/05/21 09/30/21 History Zinc 50 mg PO DAILY 06/05/21 09/30/21 History Allergies Allergy/AdvReac Type Severity Reaction Status Date / Time nickel Allergy RED AND Verified 10/01/21 11:18 BURNING SKIN Physical Exam Vitals: Vital Signs Temp Pulse Pulse Resp BP Pulse Ox 10/02/21 07:52 98.8 F 80 17 120/68 95 10/02/21 02:00 98.2 F 80 15 119/66 98 10/01/21 18:40 97.8 F 69 16 143/75 100 10/01/21 17:45 60 16 150/74 100 10/01/21 16:45 68 16 124/82 99 10/01/21 16:33 60 16 125/66 97 10/01/21 16:17 58 L 16 124/67 97 10/01/21 16:01 63 16 110/60 95 10/01/21 15:45 61 16 130/73 94 L 10/01/21 15:41 97.0 F L 74 16 124/65 96 10/01/21 12:11 70 16 119/64 96 10/01/21 11:21 98.5 F 93 18 133/65 98 Intake and Output 10/01/21 10/02/21 10/02/21 22:59 06:59 14:59 Intake Total 950 Output Total 50 Balance 900 Intake: IV 950 Output: Estimated Blood Loss 50 Other: Weight 89.7 kg Results CBC & Chem 7: 10/02/21 03:21 Labs: Abnormal Lab Results - Last 24 Hours (Table) 10/02/21 Range/Units 03:21 MCHC 31.0 L (32.0-37.0) g/dL Eosinophils # 0.01 L (0.04-0.35) X 10*3/uL Assessment and Plan Time with Patient: Less than 30
[2021-10-02] MEDS: SENNOSIDES-DOCUSATE SODIUM 1 EACH TAB PO SCH (19:33)
[2021-10-02] MEDS: FAMOTIDINE 20 MG TAB PO SCH (19:33)
[2021-10-02] MEDS: LACTATED RINGERS 1,000 ML IV SCH (21:35)
[2021-10-03] MEDS: HYDROcodone/APAP 7.5-325MG 1 EACH TAB PO PRN ×3 (02:26→13:15)
[2021-10-03] MEDS: RIVAROXABAN 10 MG TAB PO SCH (07:18)
[2021-10-03] MEDS: FAMOTIDINE 20 MG TAB PO SCH (07:18)
[2021-10-03 08:43] VITALS: BP 112/68; PULSE 98; RESP 16; TEMP 98.5
[2021-10-03 11:03] LABS: Basophils % (A) 0 %; Eosinophils % (A) 0 %; HGB 11.4 gm/dL (11.4-16.0); Hypochromasia Slight; Lymphocytes # (A) 1.4 k/uL (1.0-4.8); Lymphocytes % (A) 23 %; MCHC 30.7 g/dL (31.0-37.0); MCV 97.7 fL (80.0-100.0); Mean Platelet Volume 7.9; Monocytes # (A) 0.4 k/uL (0-1.0); Monocytes % (A) 6 %; Neutrophils # (A) 4.2 k/uL (1.3-7.7); Neutrophils % (A) 69 %; Platelet Count 167 k/uL (150-450); RBC 3.79 m/uL (3.80-5.40); RDW 13.5 % (11.5-15.5); WBC 6.2 k/uL (3.8-10.6)
[2021-10-03 11:19] LABS: African American GFR (CKD) >90 (>60 ml/min/1.73 sqM); Anion Gap 2 mmol/L; Blood Urea Nitrogen 18 mg/dL (7-17); Calcium 8.5 mg/dL (8.4-10.2); Carbon Dioxide 32 mmol/L (22-30); Chloride 105 mmol/L (98-107); Glucose 106 mg/dL (74-99); Non-African American GFR(CKD) >90 (>60 ml/min/1.73 sqM); Sodium 139 mmol/L (137-145)
--- NOTE | 2021-10-03 11:52 | P.PN ---
Subjective Progress Note Date: 10/03/21 Principal diagnosis: Status post left total knee arthroplasty Patient was evaluated today at bedside, she is resting comfortably in her hospital bed. She is feeling a lot better today, she was able to stairs with physical therapy. Her pain is controlled. She currently denies any headaches, lightheadedness, chest pain or shortness of breath. She denies any difficulty with urination at this time. Objective - Vital Signs Vital signs: Vital Signs Temp 98.5 F 10/03/21 08:00 Pulse 98 10/03/21 08:00 Resp 16 10/03/21 08:00 BP 112/68 10/03/21 08:00 Pulse Ox 97 10/03/21 11:35 Intake & Output 10/02/21 10/03/21 10/03/21 18:59 06:59 18:59 Intake Total 400 Balance 400 Intake: Oral 400 Other: Voiding Method Toilet Toilet # Voids 2 - Exam Left lower extremity: Incision is clean, dry, and intact. The exofin fusion tape is in good condition. There is minimal soft tissue swelling and ecchymosis surrounding the medial and lateral aspects of the incision. Calf is soft, no tenderness with palpation. Plantar flexion, dorsiflexion, EHL, FHL are intact. Sensory exam to light touch throughout the extremity is intact, dorsal pedis pulses 2+. - Labs CBC & Chem 7: 10/03/21 10:51 10/03/21 10:51 Labs: Abnormal Lab Results - Last 24 Hours (Table) 10/03/21 10/03/21 Range/Units 10:51 10:51 RBC 3.79 L (3.80-5.40) m/uL MCHC 30.7 L (31.0-37.0) g/dL Carbon Dioxide 32 H (22-30) mmol/L BUN 18 H (7-17) mg/dL Creatinine 0.48 L (0.52-1.04) mg/dL Glucose 106 H (74-99) mg/dL Assessment and Plan Assessment: Postoperative day #2 status post left total knee arthroplasty Plan: Pain control, plan for discharge home on [place] 7.5 mg/325 mg GI and DVT prophylaxis, Eliquis 2.5mg bid at discharge Wound care, keep incision covered and dry while showering. Icing and elevating techniques discussed Encourage incentive spirometer Recommend weight-bear as tolerated with walker Medical recommendations Discharge planning: Plan for discharge home today Time with Patient: Less than 30
--- NOTE | 2021-10-03 11:56 | P.DS ---
Providers Date of admission: 10/02/21 07:24 Expected date of discharge: 10/03/21 Attending physician: David Chan Consults: 10/01/21 15:04 Consult Physician Routine Consulting Provider: Ras Curtis Consult Reason/Comments: Medical Management Do you want consulting provider notified?: Yes Primary care physician: Cassandra Drummond [place] Hospital Course: Date of admission: 10/01/2021 Date of discharge: 10/03/2021 Admission diagnosis: Status post left total knee arthroplasty Discharge diagnosis: Same Attending physician: Doctor Chan Surgical procedures: Left total knee arthroplasty Brief history: Patient is a at 66-year-old female with a history of progressive primary left knee osteoarthritis. At this point patient has failed conservative treatment measures and has opted to proceed with a elective left total knee arthroplasty. Hospital course: Details of patient's surgery can be found in operative report. Patient tolerated the procedure well and was subsequently transported to orthopedic floor. Patient's orthopeidc and medical care was provided daily. Patient had daily laboratory tests performed for evaluation of overall blood counts. Patient had daily physical therapy to include strengthening range of motion as well as education with walker ambulation. Patient was treated with Xarelto for their postoperative DVT prophylaxis during their inpatient stay. Patient was noted to have a relatively uneventful postoperative course. Patient reported satisfactory pain control with oral pain medications by postoperative day 2. Patient showed satisfactory progress with physical therapy. Patient moved steadily through the program and had no difficulty meeting the goals by postoperative day 2. Given patient's otherwise satisfactory course and having met physical therapy goals, plan is to discharge patient home on postoperative day 2. Discharge condition/disposition: Patient will be discharged home in stable condition. Discharge medications: Instructions are given on resumption of patient's normal daily medications per primary care recommendation, in addition patient will be prescribed [place] 7.5 mg/325 mg, Senna-S, Eliquis 2.5mg. Discharge instructions: 1. Wound care and infection precautions, keep incision dry and covered while showering, no lotions, creams, moisturizers. No soaking, tubs, pools, hottubs. Do not scrub over the incision. 2. Weight-bear as tolerated with walker / cane until follow-up. 3. Ice and elevate when necessary. Do not exceed 20 minutes per hour with ice pack. 4. Utilize compression sleeve until seen at first follow up appointment. 5. Visiting nursing care. 6. Home physical therapy. 7. Pain meds and anticoagulants per prescription. 8. Pain medication has potential to cause constipation. Increase oral fluid and fiber intake. Contact primary care provider if you have not had a bowel movement within 48 hours after discharge 9. No anti-inflammatory medication until discussed at first post operative v isit, this including Motrin, Aleve, Mobic, Diclofenac. 10. Follow up in office at 2 weeks postop with Artem Nguyen PA-C/Santy Childress 11. Follow up with your primary care doctor 7-10 days after discharge. 12. Contact [facility] with any questions, . Procedures: Left total knee arthroplasty Patient Condition at Discharge: Good Plan - Discharge Summary Discharge Rx Participant: Yes New Discharge Prescriptions: New Apixaban [Eliquis] 2.5 mg PO BID #60 tab HYDROcodone/APAP 7.5-325MG [[place] 7.5] 1 - 2 each PO Q6HR PRN #56 tab PRN Reason: Pain Sennosides/Docusate Sodium [Senna-S 8.6-50 mg Tablet] 2 each PO DAILY PRN #30 tablet PRN Reason: Constipation No Action Ibuprofen [Motrin] 800 mg PO Q12H PRN PRN Reason: Pain Zinc 50 mg PO DAILY Acetaminophen [Tylenol Arthritis] 1,300 mg PO Q8H PRN PRN Reason: Pain Discharge Medication List Acetaminophen [Tylenol Arthritis] 1,300 mg PO Q8H PRN 06/05/21 [History] Ibuprofen [Motrin] 800 mg PO Q12H PRN 06/05/21 [History] Zinc 50 mg PO DAILY 06/05/21 [History] Apixaban [Eliquis] 2.5 mg PO BID #60 tab 10/03/21 [Rx] HYDROcodone/APAP 7.5-325MG [[place] 7.5] 1 - 2 each PO Q6HR PRN #56 tab 10/03/21 [Rx] Sennosides/Docusate Sodium [Senna-S 8.6-50 mg Tablet] 2 each PO DAILY PRN #30 tablet 10/03/21 [Rx] Follow up Appointment(s)/Referral(s): Santy Knight, JULIEN [PHYSICIAN TAXI PROPRIETOR] - 10/17/21 9:00 am [facility],Equipment [NON-STAFF] - As Needed (*Please call [facility] once home to arrange delivery of the Continuous Passive Motion (CPM) machine. ) Diana Feliz Senior [NON-STAFF] - As Needed ([facility] will call you to schedule your in home physical therapy and nursing visits. ) Patient Instructions/Handouts: Knee Replacement (DC) Activity/Diet/Wound Care/Special Instructions: Orthopedic Discharge Instructions: 1. Wound care and infection precautions, keep incision dry and covered while showering, no lotions, creams, moisturizers. No soaking, pools, hot tubs. Do not scrub over incision. 2. Weight-bear as tolerated with walker / cane until follow-up. 3. Ice and elevate when necessary. Do not exceed 20 minutes per hour with ice pack. 4. Utilize compression sleeve until seen at first follow up appointment. 5. Pain meds and anticoagulants per prescription. 6. Pain medication has potential to cause constipation. Increase oral fluid and fiber intake. Contact primary care provider if you have not had a bowel movement within 48 hours after discharge. 7. No anti-inflammatory medication until discussed at first post operative visit, this including Motrin, Aleve, Mobic, Diclofenac. 8. Follow up in office at 2 weeks postop with Artem Nguyen PA-C/Santy Knight PA-C 9. Follow up with your primary care doctor 7-10 days after discharge. 10. Contact [facility] with any questions, . Discharge Disposition: HOME WITH HOME HEALTH SERVICES
--- NOTE | 2021-10-03 13:04 | XR ---
EXAMINATION TYPE: XR chest 2V DATE OF EXAM: 10/03/2021 COMPARISON: 02/09/2020 HISTORY: 66-year-old female pneumonia TECHNIQUE: AP and lateral views FINDINGS: The heart is upper limits of normal in size. Mild interstitial prominence appears increased. Some sli ght patchy densities at the periphery of the right base and periphery of the left midlung. Some stran dy areas of atelectasis in the mid and lower lungs. [facility] within the mid thoracic spine. No other cons olidation or pleural effusion seen. IMPRESSION: Interstitial prominence could reflect bronchitis or asthma. Slight patchy densities are present at th e right base and periphery of the left midlung. These could represent areas of atelectasis versus dev eloping pneumonia. Reassess at follow-up.
--- NOTE | 2021-10-03 14:43 | P.PN ---
Subjective Progress Note Date: 10/03/21 This is a pleasant 56-year-old female presented to the hospital for an elective total left knee arthroplasty with cement stabilization secondary to osteoarthritis. Today she is postop day #1. Past medical history includes osteoarthritis, history of incarcerated hernia repair with mesh in 2015, surgical history includes cholecystectomy, hernia repair, elective total hysterectomy, oophrectomy, fallopian tubal removal, tonsillectomy. She is a never smoker. Home medications include zinc daily. Labs today are showing a hemoglobin stable at 12.2, white count 9.23. She is hemodynamically stable, afebrile, blood pressure 120/68, 95% room air. Currently receiving epidural with Ultram, [place], Dilaudid for breakthrough pain. She'll be evaluated PT today. Patient has not passed gas or had bowel movement yet, she is ambulating. She is also on a bowel regimen. Using incentive spirometer. 10/03/2021 Patient had a temperature 100.1 last night, 93% on room air today. Blood pressure stable 112/68, heart rate 98. She did have episodes of tachycardia lasting as well with a heart rate of 111. Chest xray was completed which is showing some interstitial prominence that is possibly a bronchitis vs. asthma. There is also patchy infiltrate in right base and left midlung which could be atelectasis vs. a developing pneumonia. We are also checking a urinalysis to rule out other source for possible infection. She does not have a white count, it is 6.2 today. Patient did have an issue with her pain ball infusion to left knee, states it was leaking throughout the evening and she had an issue with pain control. She is feeling better overall today. Reaching 1500 on her IS, lungs are clear, repeat pulse ox showing 97% on room air. Review of Systems Constitutional: Denied any fatigue denied, Reports fever last night. No chills. Cardio vascular: denied any chest pain, palpitations Gastrointestinal: denied any nausea, vomiting, diarrhea Pulmonary: Denied any shortness of breath cough Neurologic denied any new focal deficits All inpatient medications were reviewed and appropriate changes in these medications as dictated in the interval history and assessment and plan. PHYSICAL EXAMINATION: GENERAL: The patient is alert and oriented x3, not in any acute distress. Well developed, well nourished. HEENT: Pupils are round and equally reacting to light. EOMI. No scleral icterus. No conjunctival pallor. Normocephalic, atraumatic. No pharyngeal erythema. No t hyromegaly. CARDIOVASCULAR: S1 and S2 present. No murmurs, rubs, or gallops. PULMONARY: Chest is clear to auscultation, no wheezing or crackles. ABDOMEN: Soft, nontender, nondistended, normoactive bowel sounds. No palpable organomegaly. MUSCULOSKELETAL: No joint swelling or deformity. Post surgical left knee EXTREMITIES: No cyanosis, clubbing, or pedal edema. NEUROLOGICAL: Gross neurological examination did not reveal any focal deficits. SKIN: No rashes. Assessment and plan Assessment Fever, most likely due to an acute bronchitis found on imaging, patient will be discharged on antibiotics Postop day #3 total left knee arthroplasty secondary to osteoarthritis History of osteoarthritis History abdominal wall hernia, incarcerated with surgical repair x 3. History of total hysterectomy, oophrectomy, fallopian tube removal. Family history of ovarian, uterine cancer Never smoker GI prophylaxis pepcid DVT prophylaxis as per primary Full Code Plan Discharge on oral azithromycin for 5 days, follow up with PCP in 2-3 days. Check urinalysis Pepcid for GI prophylaxis Pain management per primary Continue with incentive spirometry once discharge, 10 x an hour while awake. Patient is stable for discharge medically Thank you kindly for this consultation The impression and plan of care has been dictated by Sarah Navarrete, Nurse Practitioner as directed. Dr. Ever MD I have performed a history and physical examination and medical decision making of this patient, discussed the same with the dictator, and agree with the dictators assessment and plan as written, documented as a scribe. Based on total visit time, I have performed more than 50% of this visit. Objective - Vital Signs Vital signs: Vital Signs Temp 98.5 F 10/03/21 08:00 Pulse 98 10/03/21 08:00 Resp 16 10/03/21 08:00 BP 112/68 10/03/21 08:00 Pulse Ox 93 L 10/03/21 08:00 Intake & Output 10/02/21 10/03/21 10/03/21 18:59 06:59 18:59 Intake Total 400 Balance 400 Intake: Oral 400 Other: Voiding Method Toilet Toilet # Voids 2 - Labs CBC & Chem 7: 10/03/21 10:51 10/03/21 10:51 Assessment and Plan Time with Patient: Less than 30
[2021-10-03 14:52] LABS: Appearance,Urine Clear (Clear); Bilirubin,Urine Negative (Negative); Blood,Urine Negative (Negative); Color,Urine Yellow; Glucose,Urine (UA) Negative (Negative); Ketones,Urine Negative (Negative); Leukocyte Esterase,Urine Small (Negative); Mucus,Urine Occasional /hpf; Nitrite,Urine Negative (Negative); Protein,Urine Trace (Negative); RBC,Urine 2 /hpf (0-5); Specific Gravity,Urine 1.022 (1.001-1.035); Squamous Epithelial Cell,Urine 1 /hpf (0-4); Urobilinogen,Urine <2.0 mg/dL (<2.0); WBC,Urine 3 /hpf (0-5)
--- NOTE | 2021-10-03 17:21 | P.ANPRN ---
Procedure Note - Anesthesia - Nerve Block Performed Left Adductor Canal Infusion Time Out Performed: Yes Date of Procedure: 10/01/21 Procedure Start Time: 11:53 Procedure Stop Time: 12:12 Location of Patient: PreOp Indication: Acute Post-Operative Pain, Requested by Surgeon Sedation Type: Sedate with meaningful contact maintained Preparation: Sterile Prep, Sterile Dressing Position: Supine Catheter: Indwelling Needle Types: Pajunk Needle Gauge: 21 Ultrasound used to visualize needle placement: Yes Ultrasound used to observe medication spread: Yes Blood Aspirated: No Pain Paresthesia on Injection Noted: No Resistance on Injection: Normal Image Stored and Saved: Yes Events: Uneventful and Well Tolerated (ropi .5% 20cc)
--- NOTE | 2021-10-03 17:23 | P.ANPRN ---
Procedure Note - Anesthesia - Nerve Block Performed Left iPack Single Time Out Performed: Yes Date of Procedure: 10/01/21 Procedure Start Time: 12:13 Procedure Stop Time: 12:17 Location of Patient: PreOp Indication: Acute Post-Operative Pain, Requested by Surgeon Sedation Type: Sedate with meaningful contact maintained Preparation: Sterile Prep Position: Supine Needle Types: Pajunk Needle Gauge: 21 Ultrasound used to visualize needle placement: Yes Ultrasound used to observe medication spread: Yes Blood Aspirated: No Pain Paresthesia on Injection Noted: No Resistance on Injection: Normal Image Stored and Saved: Yes Events: Uneventful and Well Tolerated (ropi .5% 25cc plus dexamethasone 4mg)
== END 2021-10-03 15:56 | disposition home health service (06) ==
LOC: OR 10:59 → 4SSUR 17:41 → OR 10-02 07:24 → 4SSUR 10-02 07:24
PROVIDERS: ADMIT Orthopaedic Surgery; ATTEND Orthopaedic Surgery
DX: M17.12 Unilateral primary osteoarthritis, left knee (principal); R00.0 Tachycardia, unspecified; R50.9 Fever, unspecified; Z80.9 Family history of malignant neoplasm, unspecified; Z90.49 Acquired absence of other specified parts of digestive tract; Z90.710 Acquired absence of both cervix and uterus; Z98.890 Other specified postprocedural states; Z79.1 Long term (current) use of non-steroidal anti-inflammatories (NSAID); Z91.048 Other nonmedicinal substance allergy status
CPT/HCPCS: 97530; 97161; 97166; 64999; 64448; 76942; 80048; 85025 ×2; 81001; 88300; 73560; 71046; 27447; G0378 ×2; C1713; C1776; J2250; J1100; J0690 ×3; J2405; J1170 ×3; J2795 ×2; J2704

== ENCOUNTER → 2021-11-27 | Outpatient (CLI) | payer MEDICARE ==
--- NOTE | 2021-11-29 07:35 | MM ---
Reason for Exam: Screening (asymptomatic). Last mammogram was performed 1 year(s) and 2 month(s) ago. Patient History: Menarche at age 14. First Full-Term at age 25. Left ovary removed at age 64. Right ovary removed at age 64. Hysterectomy at age 64. Postmenopausal. Patient used Hormonal Contraceptives for 5 years. Maternal grandmother had breast cancer. Maternal cousin had breast cancer. Risk Values: Azul 5 year model risk: 1.5%. NCI Lifetime model risk: 5.6%. Prior Study Comparison: 05/07/2018 Bilateral Screening Mammogram, [facility]. 07/12/2019 Bilateral Screening Mammogram, [facility]. 09/19/2020 Bilateral Screening Mammogram, [facility]. Tissue Density: There are scattered fibroglandular densities. Findings: Analyzed By CAD. There is no suspicious group of microcalcifications or new suspicious mass in either breast. Benign appearing round calcifications in both breasts. No significant change from prior exam. Overall Assessment: Benign, BI-RAD 2 Management: Screening Mammogram of both breasts in 1 year. A clinical breast exam by your physician is recommended on an annual basis and results should be correlated with mammographic findings. Electronically signed and approved by: Bro Mccarthy D.O.
== END | disposition home or self-care (01) ==
LOC: RADMAMWWP 14:33
PROVIDERS: ATTEND Obstetrics & Gynecology Gynecology
DX: Z12.31 Encounter for screening mammogram for malignant neoplasm of breast (principal); Z78.0 Asymptomatic menopausal state; Z80.3 Family history of malignant neoplasm of breast
CPT/HCPCS: 77063; 77067

== ENCOUNTER → 2022-11-28 | Outpatient (CLI) | payer MEDICARE ==
--- NOTE | 2022-12-01 08:48 | MM ---
Reason for Exam: Screening (asymptomatic). Last screening mammogram was performed 12 month(s) ago. Patient History: Menarche at age 14. First Full-Term at age 25. Left ovary removed at age 64. Right ovary removed at age 64. Hysterectomy at age 64. Postmenopausal. Patient used Hormonal Contraceptives for 5 years. Maternal grandmother had breast cancer. Maternal cousin had breast cancer. Mother had breast cancer at or over age 50. Risk Values: Azul 5 year model risk: 3.2%. NCI Lifetime model risk: 11.3%. Prior Study Comparison: 07/12/2019 Bilateral Screening Mammogram, [facility]. 09/19/2020 Bilateral Screening Mammogram, [facility]. 11/27/2021 Bilateral MG 3D screening mammo w/cad, [facility]. Tissue Density: The breast tissue is almost entirely fat. Findings: Analyzed By CAD. There is no suspicious group of microcalcifications or new suspicious mass in either breast. Overall Assessment: Negative, BI-RAD 1 Management: Screening Mammogram of both breasts in [address] [facility] will attempt to contact patient to return for supplemental views and ultrasound if indicated. Patient should continue monthly self-breast exams. A clinical breast exam by your physician is recommended on an annual basis. This exam should not preclude additional follow-up of suspicious palpable abnormalities. Note on Azul scores and lifetime risk: 1. A Azul score greater than 3% is considered moderate risk. If this is the case, consider specialist referral to assess eligibility for a risk reducing agent. 2. If overall lifetime risk for the development of breast cancer is 20% or higher, the patient may qualify for future screening with alternating mammogram and breast MRI. Electronically signed and approved by: Mirza Fabian DO
== END | disposition home or self-care (01) ==
LOC: RADMAMWWP 07:31
PROVIDERS: ATTEND Obstetrics & Gynecology Gynecology
DX: Z12.31 Encounter for screening mammogram for malignant neoplasm of breast (principal); Z80.3 Family history of malignant neoplasm of breast; Z78.0 Asymptomatic menopausal state
CPT/HCPCS: 77063; 77067

== ENCOUNTER → 2023-02-26 | Outpatient (CLI) | payer MEDICARE ==
--- NOTE | 2023-02-26 14:13 | MR ---
EXAMINATION TYPE: MR brain and iac wo/w con DATE OF EXAM: 02/26/2023 COMPARISON: NONE HISTORY: 67-year-old female R42, Dizziness and giddiness, Rt side hearing loss TECHNIQUE: Multiplanar, multisequence images of the brain and brainstem were acquired before and aft er administration of 9 mL IV Gadavist all there is a very some slight posterior and anterior lateral and. Diffusion weighted imaging was performed. Additional coned-down sequences through the internal auditory canals and posterior cranial fossa before and after IV contrast administration. FINDINGS: Diffusion weighted images demonstrate no evidence of an acute ischemic lesion in the brain. T2/FLAIR weighted sequences show no white matter signal abnormality. Midline structures demonstrate partially empty sella but otherwise normal morphology. The craniocerv ical junction is normal. There is mild cerebral atrophy. The ventricles are of normal caliber. There is a focal 4.2 cm CSF collection anterior right frontal convexity that causes smooth remodeling of the overlying calvarium. No associated enhancing abnormality is present in this area. No signific ant mass effect onto the underlying brain parenchyma. There is no evidence of an acute intracranial hemorrhage, mass, or otherwise any extra-axial fluid co llection. There is no cerebellopontine angle mass. The internal auditory canals are symmetric. Brainstem and skull base abnormalities are not seen. Post contrast images demonstrate no evidence of pathologic enhancement in the posterior cranial casimiro a or the internal auditory canals. There is no abnormal enhancement of the labyrinths. Mild/moderate mucosal thickening throughout the ethmoid air cells. Rightward nasal septal deviation. Globes are intact. IMPRESSION: 1. A 4.2 cm CSF collection anterior right frontal convexity that causes smooth remodeling of the over lying calvarium. Findings are suggestive of an arachnoid cyst. If symptomatic, consider neurosurgical evaluation. 2. No acute intracranial abnormality seen. No white matter signal changes or enhancing lesions. 3. No specific abnormality on acoustic MRI. 4. Mild chronic ethmoid sinus disease.
== END | disposition home or self-care (01) ==
LOC: RADMRIMAIN 11:09
PROVIDERS: ATTEND Otolaryngology
DX: J32.2 Chronic ethmoidal sinusitis (principal); R42 Dizziness and giddiness
CPT/HCPCS: 70553; A9585

== ENCOUNTER → 2024-02-23 | Outpatient (CLI) | payer MEDICARE ==
--- NOTE | 2024-02-24 18:25 | MM ---
Reason for Exam: Screening (asymptomatic). Last mammogram was performed 1 year(s) and 3 month(s) ago. Patient History: Menarche at age 14. First Full-Term at age 25. Left ovary removed at age 64. Right ovary removed at age 64. Hysterectomy at age 64. Postmenopausal. Patient used Hormonal Contraceptives for 5 years. Maternal grandmother had breast cancer. Maternal cousin had breast cancer. Mother had breast cancer at or over age 50. Risk Values: Azul 5 year model risk: 3.2%. NCI Lifetime model risk: 10.8%. Prior Study Comparison: 09/19/2020 Bilateral Screening Mammogram, [facility]. 11/27/2021 Bilateral MG 3D screening mammo w/cad, [facility]. 11/28/2022 Bilateral MG 3D screening mammo w/cad, [facility]. Tissue Density: There are scattered areas of fibroglandular density. Findings: Analyzed By CAD. There is no suspicious group of microcalcifications or new suspicious mass in either breast. Overall Assessment: Negative, BI-RAD 1 Management: Screening Mammogram of both breasts in 1 year. See note below in regards to the patient's increased 5 year Azul score. Patient should continue monthly self-breast exams. A clinical breast exam by your physician is recommended on an annual basis. This exam should not preclude additional follow-up of suspicious palpable abnormalities. Note on Azul scores and lifetime risk: 1. A Azul score greater than 3% is considered moderate risk. If this is the case, consider specialist referral to assess eligibility for a risk reducing agent. 2. If overall lifetime risk for the development of breast cancer is 20% or higher, the patient may qualify for future screening with alternating mammogram and breast MRI. [facility], , 02/24/2024 6:21 PM. Electronically signed and approved by: Danis Gonzalez M.D. Radiologist
== END | disposition home or self-care (01) ==
LOC: RADMAMWWP 07:20
PROVIDERS: ATTEND Obstetrics & Gynecology Gynecology
DX: Z12.31 Encounter for screening mammogram for malignant neoplasm of breast
CPT/HCPCS: 77063; 77067